=== PATIENT | female | born 1970 | race Two or more races ===

== ENCOUNTER 2017-11-08 09:33 | Outpatient (CLI) | payer OTHER | END 2017-11-08 09:37 | disposition home or self-care (01) | LOC: SONOGRAMA 09:33 | DX: E04.1 Nontoxic single thyroid nodule (principal) ==

== ENCOUNTER 2018-07-10 09:57 | Outpatient (CLI) | payer OTHER | END 2018-07-10 10:04 | disposition home or self-care (01) | LOC: SONOGRAMA 09:57 | DX: N63.20 Unspecified lump in the left breast, unspecified quadrant (principal) ==

== ENCOUNTER 2019-01-08 10:30 | Outpatient (CLI) | payer OTHER | END 2019-01-08 10:41 | disposition home or self-care (01) | LOC: SONOGRAMA 10:30 | DX: N63.10 Unspecified lump in the right breast, unspecified quadrant (principal); N63.20 Unspecified lump in the left breast, unspecified quadrant ==